=== PATIENT | male | born 1950 | race Caucasian/White ===

== ENCOUNTER → 2016-04-28 | Outpatient (CLI) | payer MEDICARE ==
--- NOTE | 2016-04-28 09:58 | RADRPT ---
PROCEDURE: US DVT. CLINICAL INDICATION: Right lower extremity pain. History of previous deep venous thrombosis in the right lower extremity in the . TECHNIQUE: Multiple longitudinal and transverse images of the right lower extremity veins were obt ained with garcia scale and color Doppler imaging. 2D grayscale measurements with compression, color Doppler flow, and augmentation was performed. The calf veins were interrogated as well. COMPARISON: No prior studies are available for comparison. FINDINGS: The right common femoral, superficial femoral and popliteal veins are normally compressible througho ut. Color flow demonstrates normal filling of the vessel. Normal waveforms are visualized and ther e is normal response to augmentation. The calf veins are visualized and are equally unremarkable. IMPRESSION: 1. No evidence of a deep vein thrombosis involving the right lower extremity. RPTAT: [facility] Physician Jason Date Time Electronically viewed and signed by Feroz Vila Physician on 04/28/2016 09:58 /
== END | disposition home or self-care (01) ==
LOC: VAS 08:46
PROVIDERS: ATTEND Orthopaedic Surgery
DX: I80.9 Phlebitis and thrombophlebitis of unspecified site (principal)
CPT/HCPCS: 93971